=== PATIENT | male | born 2000 | race Caucasian/White ===

== ENCOUNTER 2021-04-19 15:32 | Inpatient (IN) ==
[2021-04-19 16:15] LABS: Bilirubin,Urine Negative (Negative); Blood,Urine Negative (Negative); Clarity,Urine Clear (Clear); Color,Urine Yellow (Yellow); Glucose,Urine (UA) Normal (Normal); Ketones,Urine Negative (Negative); Leukocyte Esterase,Urine Negative (Negative); Nitrite,Urine Negative (Negative); Protein,Urine Trace mg/dL (Neg-Trace); Urobilinogen,Urine Normal (Normal)
[2021-04-19 16:28] LABS: Basophils % 0.7 %; Eosinophils # 0.1 K/mcL (0.0-0.6); Eosinophils % 2.3 %; Hematocrit 45.5 % (37.5-50.1); Hemoglobin 15.4 g/dL (12.9-16.9); Immature Granulocytes % 0.4 % (0-4); Lymphocytes # 1.6 K/mcL (0.6-4.6); Mean Corpuscular HGB Conc 33.8 g/dL (31.6-35.5); Mean Corpuscular Hemoglobin 28.6 pg (28.0-33.3); Mean Corpuscular Volume 84.6 fL (83.0-100.0); Mean Platelet Volume 10.5 fL (9.4-12.4); Monocytes # 0.5 K/mcL (0.0-1.3); Monocytes % 9.2 %; Neutrophils # 3.3 K/mcL (1.6-8.9); Platelet Count 247 K/mcL (140-400); Red Blood Count 5.38 M/mcL (4.19-5.50); Red Cell Distribution Width 12.3 % (11.5-14.5); Segmented Neutrophils % 58.4 %; White Blood Count 5.6 K/mcL (4.3-11.1)
[2021-04-19 16:43] LABS: Amphetamine Screen,Urine Negative ng/mL (Cutoff=1000); Barbiturate Screen,Urine Negative ng/mL (Cutoff=200); Benzodiazepines Screen,Urine Negative ng/mL (Cutoff=200); Cannabinoid Screen,Urine Positive ng/mL (Cutoff = 50); Cocaine Screen,Urine Negative ng/mL (Cutoff= 300); Opiate Screen,Urine Negative ng/mL (Cutoff=300); Phencyclidine Screen,Urine Negative ng/mL (Cutoff=25)
[2021-04-19 17:38] LABS: Acetaminophen < 10 mcg/mL (10-20); BUN/Creatinine Ratio 12 (6-26); Blood Urea Nitrogen 12 mg/dL (6-20); Calcium 9.2 mg/dL (8.6-10.3); Carbon Dioxide 24 mEq/L (23-29); Chloride 103 mEq/L (98-107); Ethanol < 10 mg/dL (Less than 10); Glucose 106 mg/dL (70-105); Osmolality,Calculated 284 (280-300); Potassium 3.7 mEq/L (3.5-5.1); Sodium 137 mEq/L (136-145); eGFR For African Americans > 60 (> 60); eGFR For Non-African Americans > 60 (> 60)
[2021-04-19 17:53] LABS: Salicylate < 2.5 mg/dL (15.0-30.0)
[2021-04-20 00:41] LABS: Influenza A PCR Negative (Negative); Influenza B PCR Negative (Negative); Resp. Syncytial Virus PCR Negative (Negative)
[2021-04-20 00:42] LABS: SARS-CoV-2 by PCR (In House) Negative (Negative)
[2021-04-20] MEDS ORDERED: Ibuprofen 400 MG TABLET PO PRN (00:59)
[2021-04-20] MEDS ORDERED: *HR* LORazepam 2 MG/ML VIAL IM PRN (00:59)
[2021-04-20] MEDS ORDERED: hydrOXYzine pamoate 25 MG CAPSULE PO PRN (00:59)
[2021-04-20] MEDS ORDERED: haloperidoL 5 MG TABLET PO PRN (00:59)
[2021-04-20] MEDS ORDERED: Haloperidol Lactate 5 MG/ML VIAL IM PRN (00:59)
[2021-04-20] MEDS ORDERED: Acetaminophen 325 MG TABLET PO PRN (00:59)
[2021-04-20] MEDS ORDERED: *HR* LORazepam 1 MG TABLET PO PRN (00:59)
[2021-04-20] MEDS: traZODone 50 MG TABLET PO PRN (02:44)
[2021-04-20] MEDS ORDERED: Mag Hydrox/Al Hydrox/Simeth 30 ML UDC PO PRN (11:59)
[2021-04-20] MEDS ORDERED: MOM Conc 10 ML UD.LIQ PO PRN (11:59)
[2021-04-20] MEDS: ARIPiprazole 5 MG TABLET PO SCH (12:22)
[2021-04-20] MEDS: lamoTRIgine 25 MG TABLET PO SCH (12:23)
[2021-04-20] MEDS ORDERED: lamoTRIgine 25 MG TABLET PO SCH (21:00)
[2021-04-21] MEDS: ARIPiprazole 5 MG TABLET PO SCH (08:58)
[2021-04-21] MEDS: lamoTRIgine 25 MG TABLET PO SCH (08:58)
[2021-04-22] MEDS: lamoTRIgine 25 MG TABLET PO SCH (09:35)
[2021-04-22] MEDS: ARIPiprazole 5 MG TABLET PO SCH (09:36)
[2021-04-23] MEDS: ARIPiprazole 5 MG TABLET PO SCH (08:30)
[2021-04-23] MEDS: lamoTRIgine 25 MG TABLET PO SCH (08:30)
[2021-04-23] MEDS: traZODone 50 MG TABLET PO PRN (22:28)
[2021-04-24] MEDS: ARIPiprazole 5 MG TABLET PO SCH (08:30)
[2021-04-24] MEDS: lamoTRIgine 25 MG TABLET PO SCH (08:30)
[2021-04-24 09:39] VITALS: BP 112/82; PULSE 87; TEMP 97.7; O2SAT 97
== END 2021-04-24 15:15 | disposition home or self-care (01) | DRG 885 ==
LOC: EMEROOARM 15:32 → 1ANU 04-20 01:21
PROVIDERS: ADMIT Psychiatry & Neurology Psychiatry; ATTEND Psychiatry & Neurology Psychiatry